=== PATIENT | male | born 2000 ===

== ENCOUNTER 2018-12-05 07:14 | Emergency (ER) | payer BC ==
[2018-12-05 07:30] VITALS: BP 108/53
[2018-12-05] MEDS ORDERED: Rabies VIRUS VACCINE (Imovax)* 2.5 UNIT/ML 1 ML IM ONE (07:48)
--- NOTE | 2018-12-05 07:48 | UC ---
Bite Injury/Animal HPI - HPI Summary HPI Summary: PATIENT SUSTAINED A DOG BITE TO HIS LEFT HIP 1 WEEK AGO WHILE CAMPING IN [facility] ON 11/28/18. IS HERE IN [place] FOR WORK THIS SUMMER. HAS HAD RABIES POSTEXPOSURE PROPHYLAXIS APPROVED AND IS HERE FOR TREATMENT. HAS BEEN TAKING ANTIBIOTICS PRESCRIBED BY THE [facility] IN [facility]. WOUND IS HEALING WELL. UP-TO-DATE TETANUS 2018. - History of Current Complaint Chief Complaint: UCSkin Stated Complaint: RABIES Time Seen by Provider: 12/05/18 07:32 Hx Obtained From: Patient Severity Currently: Mild Severity Initially: Moderate Pain Intensity: 0 Pain Scale Used: 0-10 Numeric Onset/Duration: Sudden Onset Type of Bite: Pet Has Animal Been Immunized?: Unknown Character: Abrasion/Laceration Aggravating Factor(s): Nothing Alleviating Factor(s): Nothing Associated Signs And Symptoms: Negative: Fever, Erythema, Drainage, Swelling, Lymphadenopathy, Numbness/Tingling Hx of Bite: Provoked by: - PT CROSSED INTO DOG [employer] Animal Available for Observation: No Animal Control Notified: Yes - Allergies/Home Medications Allergies/Adverse Reactions: Allergies Allergy/AdvReac Type Severity Reaction Status Date / Time No Known Allergies Allergy Verified 12/05/18 07:30 Home Medications: Home Medications Linaclotide (NF) [Linzess (NF)] 290 mg PO DAILY 12/05/18 [History Confirmed ] PMH/Surg Hx/FS Hx/Imm Hx Previously Healthy: Yes - Surgical History Surgical History: None - Family History Known Family History: Positive: Non-Contributory - Social History Alcohol Use: Occasionally Substance Use Type: None Smoking Status (MU): Never Smoked Tobacco - Immunization History Most Recent Tetanus Shot: February 2018 Review of Systems All Other Systems Reviewed And Are Negative: Yes Constitutional: Positive: Negative Skin: Positive: Other - HEALING BITE WOUND LEFT HIP Respiratory: Positive: Negative Cardiovascular: Positive: Negative Gastrointestinal: Positive: Negative Musculoskeletal: Positive: Negative Physical Exam Triage Information Reviewed: Yes Appearance: Well-Appearing, No Pain Distress, Well-Nourished Vital Signs: Initial Vital Signs Temp 98.2 F 12/05/18 07:22 Pulse 53 12/05/18 07:22 Resp 20 12/05/18 07:22 BP 108/53 12/05/18 07:22 Pulse Ox 100 12/05/18 07:22 Vital Signs Reviewed: Yes Eyes: Positive: Conjunctiva Clear ENT: Positive: Hearing grossly normal Neck: Positive: Supple Respiratory: Positive: No respiratory distress, No accessory muscle use Cardiovascular: Positive: Pulses Normal Abdomen Description: Positive: Soft Musculoskeletal: Positive: No Edema Neurological: Positive: Alert Psychological: Positive: Age Appropriate Behavior Skin: Positive: Other - 1CM HEALING WOUND LEFT HIP. NO TENDERNESS, ERYTHEMA OR DRAINAGE. Bite Injury Course/Dx - Course Course Of Treatment: ADVISED TO CONTINUE ANTIBIOTICS TO COMPLETE COURSE. WOUND IS HEALING WELL. NO SIGN OF INFECTION. RABIES IMMUNOGLOBULIN GIVEN TODAY. WOUND INFILTRATED WITH 1.8 ML BY M.D. REMAINING 3 ML GIVEN IM BY RN. FIRST RABIES VACCINATION ALSO ADMINISTERED BY RN. PATIENT WILL FOLLOW-UP WITH [facility] FOR HIS NEXT RABIES VACCINATION. UP TO DATE TDAP LAST YEAR. NO NEED FOR BOOSTER TODAY. - Differential Dx/Diagnosis Provider Diagnosis: Need for post exposure prophylaxis for rabies Discharge - Sign-Out/Discharge Documenting (check all that apply): Patient Departure All imaging exams completed and their final reports reviewed: No Studies - Discharge Plan Condition: Stable Disposition: HOME Patient Education Materials: Rabies (ED), Rabies Vaccine (ED) Referrals: No Primary Care Phys,NOPCP [Primary Care Provider] - Additional Instructions: Rabies Exposure You may have been exposed to the rabies virus. This is a serious problem. To prevent rabies, treatment must begin early. If we wait until you develop symptoms of rabies, it's too late. Rabies is a deadly infection. The rabies virus is found in an infected animal's saliva. After a bite, it grows in the muscle, then travels up the nerves into the brain. Using a series of shots, we can keep the virus from growing in your body. We clean the wound thoroughly. We usually inject rabies immune globulin ( antibodies against rabies) into the wound area. Another shot of immune globulin is given to treat the entire body. You'll need immunization against rabies. (If you're already immunized against rabies, you may need only a booster shot.) After the first shot, there are booster shots over the two weeks following exposure. These are usually done on day 3, 7, and 14. The repeat doses can also be given through the Health Department or by special arrangement with your doctor. The vaccine is 100% effective if started within 10 days, and also is highly effective if started beyond the 10 day recommendation. Because the incubation period for rabies is very long, up to one year, don't assume that you are safe if 10 days have already elapsed since your exposure. Bats are a special case, because they can carry rabies without becoming ill. Their mouths are so small that they can bite a sleeping person without the person being aware of the bite. That's why the health department may recommend rabies shots for a person who wakes up to discover a bat in the room. Ibuprofen or acetaminophen can be used for aching and swelling at the injection site. Call the doctor or return if you develop increasing pain, fever , chills, or spreading redness, or if you become short of breath or faint. YOU RECEIVED THE RABIES IMMUNE GLOBULIN AND YOUR FIRST DOSE OF THE RABIES VACCINE TODAY. FOLLOW-UP WITH THE HEALTH DEPARTMENT IN 3 DAYS FOR YOUR NEXT VACCINATION. - Billing Disposition and Condition Condition: STABLE Disposition: Home
[2018-12-05] MEDS ORDERED: Rabies Immune Globulin/PF 1ML* 1 ML/300 UNITS VIAL IM ONE (07:49)
== END 2018-12-05 08:45 | disposition home or self-care (01) ==
LOC: UCEAST 07:14
DX: Z20.3 Contact with and (suspected) exposure to rabies (principal); Z29.14 Encounter for prophylactic rabies immune globulin; Z51.89 Encounter for other specified aftercare; S71.052A Open bite, left hip, initial encounter; W54.0XXA Bitten by dog, initial encounter; Y92.833 Campsite as the place of occurrence of the external cause
CPT/HCPCS: 90375; 90471; 96372; 99201; G0463